=== PATIENT | male | born 1970 | race Caucasian/White ===

== ENCOUNTER → 2020-07-02 | Outpatient (CLI) | payer OTHER | LOC: EXRD 15:13 | DX: R76.8 Other specified abnormal immunological findings in serum (principal) | CPT/HCPCS: 72202 ==

== ENCOUNTER → 2020-07-23 | Outpatient (CLI) | payer OTHER | LOC: EXRD 13:29 | DX: M45.0 Ankylosing spondylitis of multiple sites in spine (principal); M54.9 Dorsalgia, unspecified; G89.29 Other chronic pain; M47.813 Spondylosis without myelopathy or radiculopathy, cervicothoracic region | CPT/HCPCS: 72040; 72070 ==

== ENCOUNTER → 2021-07-24 | Outpatient (CLI) | payer OTHER | LOC: SLEEP 21:30 | DX: G47.33 Obstructive sleep apnea (adult) (pediatric) (principal) | CPT/HCPCS: 95811 ==